=== PATIENT | female | born 1935 | race African-American/Black ===

== ENCOUNTER 2020-05-04 15:39 | Inpatient (IN) | payer OTHER ==
[~2020-05-04] VITALS: Ht 157.5 cm; Wt 60.3 kg
[2020-05-04] MEDS ORDERED: SODIUM CHLORIDE 0.9% 1000ML BAG (SEPSIS BOLUS) IV ONE (16:00)
[2020-05-04] MEDS ORDERED: VANCOMYCIN 1 G PREMIX 200 ML IV ONE (16:00)
[2020-05-04] MEDS ORDERED: PIPERACILLIN/TAZ 3.375G PREMIX 50 ML IV ONE (16:00)
[2020-05-04 16:23] LABS: HEMATOCRIT. 39.5 % (36.0-48.0); HEMOGLOBIN. 12.6 g/dL (12.0-16.0); MEAN CORPUSCULAR HEMOGLOBIN 28.7 pg (28.0-32.0); MEAN CORPUSCULAR VOLUME 89.5 fL (81.0-99.0); PLATELET 126 x1000/uL (130-400); RED BLOOD CELL COUNT 4.41 mill/uL (4.2-5.4); RED CELL DISTRIBUTION WIDTH 15.5 % (11.6-14.6)
[2020-05-04 16:27] LABS: CHLORIDE 121 mEq/L (98-107)
[2020-05-04] MEDS ORDERED: DEXTROSE 50% WATER 50ML SYRINGE IV ONE (16:30)
[2020-05-04 16:44] LABS: BG BASE EXCESS -3.9 mmol/L (-2.0-2.0); BG CARBOXYHEMOGLOBIN 0.7 % (0.5-1.5); BG DEOXYHEMOGLOBIN 0.7 % (0.0-5.0); BG FRACTION INSPIRED OXYGEN 99.9; BG HCO3 ACT 22.2 mmol/L (22.0-26.0); BG METHEMOGLOBIN 0.3 % (0.0-1.5); BG OXYGEN SATURATION 99.3 % (92.0-98.5); BG OXYHEMOGLOBIN 98.3 % (94.0-97.0); BG PCO2 44.9 mmHg (35.0-45.0); BG PH 7.312 (7.350-7.450); BG PO2 300.1 mmHg (75.0-100.0); BG SAMPLE SITE RIGHT RADIAL; BG TOTAL HEMOGLOBIN 10.8 g/dL (12.0-18.0); BG VENT MODE MASK - NRB
[2020-05-04] MEDS ORDERED: SODIUM CHLORIDE 0.9% 1,000 ML IV ONE ×2 (16:45→17:00)
[2020-05-04 16:53] LABS: CREATINE KINASE 3708 IU/L (26-192)
[2020-05-04] MEDS ORDERED: INSULIN REGULAR (DRIP) 100 UNITS in SODIUM CHLORIDE 0.9% 99 ML IV SCH (17:00)
[2020-05-04] MEDS ORDERED: NOREPINEPHRINE 8MG/250ML PMX 250 ML IV ONE (17:00)
[2020-05-04 17:21] LABS: CLARITY URINE TURBID (CLEAR); COLOR URINE YELLOW (YELLOW); KETONES URINE NEGATIVE (NEGATIVE); LEUKOCYTE ESTERASE URINE 2+ (NEGATIVE); NITRITE URINE NEGATIVE (NEGATIVE); OCCULT BLOOD URINE 3+ (NEGATIVE); PROTEIN URINE 2+ (NEGATIVE); SPECIFIC GRAVITY URINE 1.021 (1.005-1.030)
[2020-05-04 17:38] LABS: PLATELET ESTIMATE SLIGHTLY DECREASED
[2020-05-04] MEDS ORDERED: PIPERACILLIN/TAZOBACTAM 3.375 G in DEXT 5% WATER 100 ML IV SCH (18:45)
[2020-05-04] MEDS ORDERED: INSULIN REGULAR (HUMULIN R) 300UNITS/3ML VIAL SUBCUT NR (18:56)
[2020-05-04] MEDS ORDERED: ONDANSETRON HCL 4MG/2ML INJ IV PRN (19:00)
[2020-05-04] MEDS ORDERED: LORAZEPAM 2MG/ML CPJ IV PRN (19:00)
[2020-05-04 19:18] LABS: CREATINE KINASE MB FRACTION 11.1 ng/mL (0.5-3.6)
[2020-05-04] MEDS: NOREPINEPHRINE 8 MG in DEXTROSE 5% WATER 250 ML IV SCH (20:37)
[2020-05-04] MEDS: PIPERACILLIN/TAZOBACTAM 2.25 G in DEXTROSE 5% WATER 50 ML IV SCH (22:43)
[2020-05-05] MEDS ORDERED: DEXTROSE 50% WATER 50ML SYRINGE IV SCH ×2 (03:45)
[2020-05-05] MEDS ORDERED: DEXTROSE 5% WATER 1,000 ML IV ONE (04:30)
[2020-05-05] MEDS: PIPERACILLIN/TAZOBACTAM 2.25 G in DEXTROSE 5% WATER 50 ML IV SCH ×3 (06:00→22:28)
[2020-05-05] MEDS: DEXTROSE 5% WATER 1,000 ML IV SCH ×3 (08:00→22:05)
[2020-05-05] MEDS: NOREPINEPHRINE 8 MG in DEXTROSE 5% WATER 250 ML IV SCH (09:00)
[2020-05-05] MEDS: ASPIRIN 81MG TABLET PO SCH (09:00)
[2020-05-05] MEDS ORDERED: DEXTROSE 50% WATER 50ML SYRINGE IV PRN (13:00)
[2020-05-05] MEDS ORDERED: PHENYLEPHRINE 100 MG in DEXT 5% WATER 240 ML IV PRN (15:00)
[2020-05-05] MEDS ORDERED: LACTULOSE 300 ML in WATER FOR IRRIGATION,STERILE 700 ML IR SCH (15:00)
[2020-05-05 16:40] LABS: HEMATOCRIT. 32.6 % (36.0-48.0); HEMOGLOBIN. 10.6 g/dL (12.0-16.0); MEAN CORPUSCULAR HEMOGLOBIN 28.8 pg (28.0-32.0); MEAN CORPUSCULAR VOLUME 88.4 fL (81.0-99.0); MEAN PLATELET VOLUME 12.6 fl (7.4-10.4); PLATELET 81 x1000/uL (130-400); RED BLOOD CELL COUNT 3.68 mill/uL (4.2-5.4); RED CELL DISTRIBUTION WIDTH 15.4 % (11.6-14.6)
[2020-05-05 16:58] LABS: T4 FREE 1.45 ng/dL (0.76-1.46)
[2020-05-05] MEDS: INSULIN LISPRO 100 UNITS/ML SUBCUT SCH ×3 (17:00→21:54)
[2020-05-05] MEDS: BLOOD SUGAR DIAGNOSTIC STRIP TEST SCH ×2 (17:12→21:47)
[2020-05-05] MEDS ORDERED: NOREPINEPHRINE 8 MG in DEXTROSE 5% WATER 250 ML IV PRN (18:45)
[2020-05-05 19:41] LABS: NUCLEATED RED BLOOD CELLS 1 /100 WBC; PLATELET ESTIMATE DECREASED
[2020-05-05 23:25] LABS: T4 FREE 1.33 ng/dL (0.76-1.46)
[2020-05-05 23:50] LABS: FOLIC ACID (FOLATE) SERUM > 20.00 ng/mL (>5.38); VITAMIN B12 SERUM > 2000.0 pg/mL (211-911)
[2020-05-06] MEDS: CEFEPIME 1,000 MG in DEXTROSE 5% WATER 50 ML IV SCH ×2 (02:02→11:44)
[2020-05-06] MEDS: METRONIDAZOLE 500 MG PREMIX 100 ML IV SCH ×2 (02:43→11:44)
[2020-05-06] MEDS: DEXTROSE 5% WATER 1,000 ML IV SCH ×2 (04:44→11:30)
[2020-05-06 06:03] LABS: PHOSPHORUS 2.4 mg/dL (2.5-4.9)
[2020-05-06 06:06] LABS: T4 FREE 1.36 ng/dL (0.76-1.46)
[2020-05-06] MEDS: BLOOD SUGAR DIAGNOSTIC STRIP TEST SCH ×16 (06:26→23:13)
[2020-05-06] MEDS: INSULIN LISPRO 100 UNITS/ML SUBCUT SCH ×4 (06:32→19:39)
[2020-05-06] MEDS: ASPIRIN 81MG TABLET PO SCH (09:00)
[2020-05-06] MEDS: LACTULOSE 20G/30ML UDC PO SCH (09:00)
[2020-05-06] MEDS ORDERED: MAGNESIUM 2 G PREMIX 50 ML IV NR (09:30)
[2020-05-06] MEDS ORDERED: ALBUMIN HUMAN 25GM/100ML (25%) IV NR (09:30)
[2020-05-06] MEDS ORDERED: INSULIN REGULAR (DRIP) 100 UNITS in SODIUM CHLORIDE 0.9% 99 ML IV SCH (10:00)
[2020-05-06] MEDS ORDERED: POTASSIUM PHOS,M-BASIC-D-BASIC 15 MMOL in DEXT 5% WATER 245 ML IV NR (10:00)
[2020-05-06] MEDS ORDERED: DEXTROSE 50% WATER 50ML SYRINGE IV PRN ×2 (10:00)
[2020-05-06] MEDS ORDERED: POTASSIUM CHLORIDE INJ 40 MEQ in DEXT 5% WATER 250 ML IV NR (10:00)
[2020-05-06 10:02] LABS: HEMATOCRIT. 28.3 % (36.0-48.0); HEMOGLOBIN. 9.4 g/dL (12.0-16.0); MEAN CORPUSCULAR HEMOGLOBIN 29.1 pg (28.0-32.0); MEAN CORPUSCULAR VOLUME 87.4 fL (81.0-99.0); MEAN PLATELET VOLUME 11.6 fl (7.4-10.4); RED BLOOD CELL COUNT 3.24 mill/uL (4.2-5.4); RED CELL DISTRIBUTION WIDTH 15.4 % (11.6-14.6)
[2020-05-06 10:05] LABS: PLATELET 62 x1000/uL (130-400)
[2020-05-06 10:14] LABS: BG BASE EXCESS -4.5 mmol/L (-2.0-2.0); BG CARBOXYHEMOGLOBIN 0.3 % (0.5-1.5); BG DEOXYHEMOGLOBIN 1.9 % (0.0-5.0); BG FRACTION INSPIRED OXYGEN 100; BG HCO3 ACT 18.7 mmol/L (22.0-26.0); BG METHEMOGLOBIN 0.3 % (0.0-1.5); BG OXYGEN SATURATION 98.1 % (92.0-98.5); BG OXYHEMOGLOBIN 97.5 % (94.0-97.0); BG PCO2 27.7 mmHg (35.0-45.0); BG PH 7.448 (7.350-7.450); BG PO2 113.9 mmHg (75.0-100.0); BG SAMPLE SITE RIGHT RADIAL; BG TOTAL HEMOGLOBIN 8.9 g/dL (12.0-18.0); BG VENT MODE MASK - NRB
[2020-05-06] MEDS ORDERED: VANCOMYCIN 750 MG PREMIX 150 ML IV NR (11:00)
[2020-05-06 11:01] LABS: CREATINE KINASE 4182 IU/L (26-192)
[2020-05-06 15:08] LABS: PLATELET ESTIMATE DECREASED
[2020-05-06] MEDS ORDERED: NOREPINEPHRINE 8MG/250ML PMX 250 ML IV PRN (22:00)
[2020-05-06] MEDS: DEXT 5% WATER + KCL 20MEQ/L 1,000 ML IV SCH (23:13)
[2020-05-07] MEDS: BLOOD SUGAR DIAGNOSTIC STRIP TEST SCH ×21 (01:00→23:00)
[2020-05-07] MEDS: METRONIDAZOLE 500 MG PREMIX 100 ML IV SCH ×2 (02:48→12:00)
[2020-05-07] MEDS: CEFEPIME 1,000 MG in DEXTROSE 5% WATER 50 ML IV SCH ×2 (03:12→12:00)
[2020-05-07 08:39] LABS: HEMATOCRIT. 24.4 % (36.0-48.0); HEMOGLOBIN. 8.3 g/dL (12.0-16.0); MEAN CORPUSCULAR HEMOGLOBIN 29.1 pg (28.0-32.0); MEAN CORPUSCULAR VOLUME 85.8 fL (81.0-99.0); MEAN PLATELET VOLUME 12.3 fl (7.4-10.4); RED BLOOD CELL COUNT 2.84 mill/uL (4.2-5.4); RED CELL DISTRIBUTION WIDTH 14.7 % (11.6-14.6)
[2020-05-07 08:45] LABS: PHOSPHORUS 1.9 mg/dL (2.5-4.9)
[2020-05-07] MEDS: NOREPINEPHRINE 8 MG in DEXTROSE 5% WATER 250 ML IV PRN ×3 (09:00→18:35)
[2020-05-07] MEDS: ASPIRIN 81MG TABLET PO SCH (09:00)
[2020-05-07] MEDS: LACTULOSE 20G/30ML UDC PO SCH (09:00)
[2020-05-07 09:40] LABS: PLATELET 47 x1000/uL (130-400)
[2020-05-07] MEDS ORDERED: VANCOMYCIN 750 MG PREMIX 150 ML IV NR (10:30)
[2020-05-07] MEDS ORDERED: POTASSIUM PHOS,M-BASIC-D-BASIC 30 MMOL in DEXT 5% WATER 500 ML IV ONE (10:30)
[2020-05-07] MEDS: DEXT 5% WATER + KCL 20MEQ/L 1,000 ML IV SCH (11:20)
[2020-05-07 12:45] LABS: PLATELET ESTIMATE MARKEDLY DECREASED
[2020-05-07] MEDS ORDERED: POTASSIUM CHLORIDE INJ 40 MEQ in DEXT 5% WATER 250 ML IV ONE (16:30)
[2020-05-08] MEDS: DEXT 5% WATER + KCL 20MEQ/L 1,000 ML IV SCH ×2 (00:40→17:13)
[2020-05-08] MEDS: BLOOD SUGAR DIAGNOSTIC STRIP TEST SCH ×19 (01:00→21:48)
[2020-05-08 06:34] LABS: HEMATOCRIT. 26.2 % (36.0-48.0); HEMOGLOBIN. 8.8 g/dL (12.0-16.0); MEAN CORPUSCULAR HEMOGLOBIN 29.2 pg (28.0-32.0); MEAN CORPUSCULAR VOLUME 87.3 fL (81.0-99.0); MEAN PLATELET VOLUME 10.8 fl (7.4-10.4); RED CELL DISTRIBUTION WIDTH 15.4 % (11.6-14.6)
[2020-05-08 06:46] LABS: PHOSPHORUS 2.7 mg/dL (2.5-4.9)
[2020-05-08] MEDS: LACTULOSE 20G/30ML UDC PO SCH (09:00)
[2020-05-08] MEDS: MIDODRINE HCL 5MG TABLET NG SCH ×3 (09:00→16:14)
[2020-05-08] MEDS: CITRIC ACID/SODIUM CITRATE SOLN 30ML UDC PO SCH ×3 (09:00→17:00)
[2020-05-08 10:21] LABS: PLATELET ESTIMATE MARKEDLY DECREASED
[2020-05-08 10:22] LABS: PLATELET 48 x1000/uL (130-400)
[2020-05-08] MEDS: CEFEPIME 1,000 MG in DEXTROSE 5% WATER 50 ML IV SCH ×2 (12:00)
[2020-05-08] MEDS: METRONIDAZOLE 500 MG PREMIX 100 ML IV SCH ×2 (12:00)
[2020-05-08 12:47] LABS: BG BASE EXCESS -7.4 mmol/L (-2.0-2.0); BG CARBOXYHEMOGLOBIN 0.3 % (0.5-1.5); BG DEOXYHEMOGLOBIN 0.8 % (0.0-5.0); BG FRACTION INSPIRED OXYGEN 100; BG HCO3 ACT 16.2 mmol/L (22.0-26.0); BG METHEMOGLOBIN 0.3 % (0.0-1.5); BG OXYGEN SATURATION 99.2 % (92.0-98.5); BG OXYHEMOGLOBIN 98.6 % (94.0-97.0); BG PCO2 26.3 mmHg (35.0-45.0); BG PH 7.408 (7.350-7.450); BG PO2 216.7 mmHg (75.0-100.0); BG SAMPLE SITE LEFT BRACHIAL; BG TOTAL HEMOGLOBIN 8.5 g/dL (12.0-18.0); BG VENT MODE MASK - NRB
[2020-05-08] MEDS: NOREPINEPHRINE 8 MG in DEXTROSE 5% WATER 250 ML IV PRN (17:00)
[2020-05-08] MEDS: INSULIN LISPRO (HIGH DOSE) 100 UNITS/ML SUBCUT SCH (21:51)
[2020-05-08] MEDS: INSULIN GLARGINE UD 100 UNITS/ML SYR SUBCUT SCH (22:08)
[2020-05-09] MEDS: METRONIDAZOLE 500 MG PREMIX 100 ML IV SCH ×2 (00:41→12:00)
[2020-05-09] MEDS: CEFEPIME 1,000 MG in DEXTROSE 5% WATER 50 ML IV SCH ×2 (00:52→12:00)
[2020-05-09] MEDS: INSULIN LISPRO (HIGH DOSE) 100 UNITS/ML SUBCUT SCH ×4 (03:26→21:22)
[2020-05-09] MEDS: BLOOD SUGAR DIAGNOSTIC STRIP TEST SCH ×4 (03:41→21:22)
[2020-05-09 04:33] LABS: HEMATOCRIT. 25.6 % (36.0-48.0); HEMOGLOBIN. 8.6 g/dL (12.0-16.0); MEAN CORPUSCULAR HEMOGLOBIN 28.4 pg (28.0-32.0); MEAN CORPUSCULAR VOLUME 85.1 fL (81.0-99.0); MEAN PLATELET VOLUME 12.3 fl (7.4-10.4); RED BLOOD CELL COUNT 3.01 mill/uL (4.2-5.4); RED CELL DISTRIBUTION WIDTH 15.2 % (11.6-14.6)
[2020-05-09 04:37] LABS: PHOSPHORUS 1.8 mg/dL (2.5-4.9)
[2020-05-09 04:46] LABS: PLATELET 44 x1000/uL (130-400)
[2020-05-09 08:34] LABS: BG BASE EXCESS -5.1 mmol/L (-2.0-2.0); BG CARBOXYHEMOGLOBIN 0.9 % (0.5-1.5); BG DEOXYHEMOGLOBIN 6.6 % (0.0-5.0); BG HCO3 ACT 17.3 mmol/L (22.0-26.0); BG METHEMOGLOBIN 0.3 % (0.0-1.5); BG OXYGEN SATURATION 93.3 % (92.0-98.5); BG OXYHEMOGLOBIN 92.2 % (94.0-97.0); BG PH 7.493 (7.350-7.450); BG PO2 63.9 mmHg (75.0-100.0); BG SAMPLE SITE RIGHT RADIAL; BG VENT MODE ROOM AIR
[2020-05-09] MEDS ORDERED: POTASSIUM PHOS,M-BASIC-D-BASIC 20 MMOL in DEXT 5% WATER 243.3333 ML IV SCH (09:00)
[2020-05-09] MEDS: LACTULOSE 20G/30ML UDC PO SCH (09:00)
[2020-05-09] MEDS: CITRIC ACID/SODIUM CITRATE SOLN 30ML UDC PO SCH ×3 (09:00→17:00)
[2020-05-09] MEDS: MIDODRINE HCL 5MG TABLET NG SCH ×3 (09:00→17:00)
[2020-05-09] MEDS: INSULIN GLARGINE UD 100 UNITS/ML SYR SUBCUT SCH ×2 (10:00→22:01)
[2020-05-09 13:15] LABS: PLATELET ESTIMATE MARKEDLY DECREASED
[2020-05-09] MEDS: DEXT 5% WATER + KCL 20MEQ/L 1,000 ML IV SCH (13:24)
[2020-05-10] MEDS: CEFEPIME 1,000 MG in DEXTROSE 5% WATER 50 ML IV SCH ×2 (01:00→12:52)
[2020-05-10] MEDS: METRONIDAZOLE 500 MG PREMIX 100 ML IV SCH ×2 (01:10→12:39)
[2020-05-10] MEDS: BLOOD SUGAR DIAGNOSTIC STRIP TEST SCH ×4 (04:02→21:12)
[2020-05-10] MEDS: INSULIN LISPRO (HIGH DOSE) 100 UNITS/ML SUBCUT SCH ×4 (04:05→21:12)
[2020-05-10 05:02] LABS: HEMATOCRIT. 27.9 % (36.0-48.0); HEMOGLOBIN. 9.2 g/dL (12.0-16.0); MEAN CORPUSCULAR HEMOGLOBIN 28.4 pg (28.0-32.0); MEAN CORPUSCULAR VOLUME 86.4 fL (81.0-99.0); MEAN PLATELET VOLUME 11.4 fl (7.4-10.4); PLATELET 52 x1000/uL (130-400); RED BLOOD CELL COUNT 3.23 mill/uL (4.2-5.4); RED CELL DISTRIBUTION WIDTH 15.2 % (11.6-14.6)
[2020-05-10 05:25] LABS: PHOSPHORUS 2.9 mg/dL (2.5-4.9)
[2020-05-10] MEDS: DEXT 5% WATER + KCL 20MEQ/L 1,000 ML IV SCH (08:06)
[2020-05-10] MEDS: CITRIC ACID/SODIUM CITRATE SOLN 30ML UDC PO SCH ×3 (09:00→16:41)
[2020-05-10] MEDS: MIDODRINE HCL 5MG TABLET NG SCH ×3 (09:44→16:40)
[2020-05-10] MEDS: LACTULOSE 20G/30ML UDC PO SCH (09:44)
[2020-05-10] MEDS: INSULIN GLARGINE UD 100 UNITS/ML SYR SUBCUT SCH ×2 (10:11→21:45)
[2020-05-10 11:16] LABS: PLATELET ESTIMATE DECREASED
[2020-05-10] MEDS: MEROPENEM 1,000 MG in SODIUM CHLORIDE 0.9% 100 ML IV SCH (23:00)
[2020-05-11] MEDS: DEXT 5% WATER + KCL 20MEQ/L 1,000 ML IV SCH ×3 (01:07→22:00)
[2020-05-11] MEDS: BLOOD SUGAR DIAGNOSTIC STRIP TEST SCH ×4 (05:45→21:53)
[2020-05-11] MEDS: INSULIN LISPRO (HIGH DOSE) 100 UNITS/ML SUBCUT SCH ×4 (05:50→22:00)
[2020-05-11 06:16] LABS: HEMATOCRIT. 22.7 % (36.0-48.0); HEMOGLOBIN. 7.6 g/dL (12.0-16.0); MEAN CORPUSCULAR HEMOGLOBIN 28.3 pg (28.0-32.0); MEAN CORPUSCULAR VOLUME 84.7 fL (81.0-99.0); MEAN PLATELET VOLUME 11.1 fl (7.4-10.4); PLATELET 73 x1000/uL (130-400); RED BLOOD CELL COUNT 2.69 mill/uL (4.2-5.4); RED CELL DISTRIBUTION WIDTH 14.8 % (11.6-14.6)
[2020-05-11 07:44] LABS: PHOSPHORUS 2.9 mg/dL (2.5-4.9)
[2020-05-11] MEDS: MIDODRINE HCL 5MG TABLET NG SCH ×3 (09:05→16:52)
[2020-05-11] MEDS: CITRIC ACID/SODIUM CITRATE SOLN 30ML UDC PO SCH ×3 (09:05→16:52)
[2020-05-11] MEDS: LACTULOSE 20G/30ML UDC PO SCH (09:05)
[2020-05-11 09:50] LABS: PLATELET ESTIMATE DECREASED
[2020-05-11] MEDS: INSULIN GLARGINE UD 100 UNITS/ML SYR SUBCUT SCH ×2 (09:50→22:36)
[2020-05-11] MEDS: MEROPENEM 1,000 MG in SODIUM CHLORIDE 0.9% 100 ML IV SCH ×2 (10:30→23:30)
[2020-05-11] MEDS ORDERED: INSULIN GLARGINE UD 100 UNITS/ML SYR SUBCUT NR (12:30)
[2020-05-11] MEDS: POLYETHYLENE GLYCOL 3350 (17GM) 1 DOSE PACK PO SCH (12:40)
[2020-05-11] MEDS ORDERED: ALBUMIN HUMAN 25GM/100ML (25%) IV NR (13:45)
[2020-05-11 18:31] LABS: MEAN CORPUSCULAR HEMOGLOBIN 28.1 pg (28.0-32.0); MEAN CORPUSCULAR VOLUME 84.8 fL (81.0-99.0); PLATELET 71 x1000/uL (130-400); RED BLOOD CELL COUNT 2.41 mill/uL (4.2-5.4); RED CELL DISTRIBUTION WIDTH 14.8 % (11.6-14.6)
[2020-05-11 18:34] LABS: HEMATOCRIT 20.4 % (36.0-48.0); HEMOGLOBIN 6.8 g/dL (12.0-16.0)
[2020-05-12] VITALS (34 sets, daily range): BP systolic 110–153; BP diastolic 44–92
[2020-05-12] MEDS: BLOOD SUGAR DIAGNOSTIC STRIP TEST SCH ×4 (03:42→21:07)
[2020-05-12] MEDS: INSULIN LISPRO (HIGH DOSE) 100 UNITS/ML SUBCUT SCH ×4 (04:35→21:14)
[2020-05-12 06:22] LABS: PHOSPHORUS 1.8 mg/dL (2.5-4.9)
[2020-05-12] MEDS: DEXT 5% WATER + KCL 20MEQ/L 1,000 ML IV SCH ×2 (08:04→18:27)
[2020-05-12] MEDS ORDERED: POTASSIUM PHOS,M-BASIC-D-BASIC 20 MMOL in DEXT 5% WATER 250 ML IV SCH (09:00)
[2020-05-12] MEDS: LACTULOSE 20G/30ML UDC PO SCH (09:22)
[2020-05-12] MEDS: MIDODRINE HCL 5MG TABLET NG SCH ×3 (09:22→18:23)
[2020-05-12] MEDS: POLYETHYLENE GLYCOL 3350 (17GM) 1 DOSE PACK PO SCH (10:06)
[2020-05-12] MEDS: CITRIC ACID/SODIUM CITRATE SOLN 30ML UDC PO SCH ×3 (10:06→18:22)
[2020-05-12] MEDS: INSULIN GLARGINE UD 100 UNITS/ML SYR SUBCUT SCH ×2 (10:07→21:31)
[2020-05-12 10:09] LABS: MEAN CORPUSCULAR HEMOGLOBIN 28.8 pg (28.0-32.0); MEAN CORPUSCULAR VOLUME 86.3 fL (81.0-99.0); MEAN PLATELET VOLUME 11.4 fl (7.4-10.4); PLATELET 90 x1000/uL (130-400); RED CELL DISTRIBUTION WIDTH 14.7 % (11.6-14.6)
[2020-05-12 10:20] LABS: HEMATOCRIT. 20.7 % (36.0-48.0); HEMOGLOBIN. 6.9 g/dL (12.0-16.0)
[2020-05-12] MEDS: MEROPENEM 1,000 MG in SODIUM CHLORIDE 0.9% 100 ML IV SCH ×2 (11:06→23:00)
[2020-05-12 13:07] LABS: NUCLEATED RED BLOOD CELLS 1 /100 WBC; PLATELET ESTIMATE SLIGHTLY DECREASED
[2020-05-12 15:44] LABS: TOTAL IRON BINDING CAPACITY 333 ug/dL (250-450)
[2020-05-12] MEDS ORDERED: HYDR25TA PO (18:51)
[2020-05-12] MEDS ORDERED: LISI2.5T47 PO (18:51)
[2020-05-12] MEDS ORDERED: ATOR10TA69 PO (18:51)
[2020-05-12] MEDS ORDERED: ASPI-864 PO (18:51)
[2020-05-12] MEDS ORDERED: AMLO5TAB88 PO (18:51)
[2020-05-12] MEDS: PANTOPRAZOLE SODIUM 40 MG/VIAL IV SCH (21:14)
[2020-05-12] MEDS ORDERED: PNEUMOCOCCAL 23-VAL P-SAC VAC 0.5 ML IM ONE (22:00)
[2020-05-12 23:30] LABS: HEMATOCRIT 30.8 % (36.0-48.0); HEMOGLOBIN 10.3 g/dL (12.0-16.0)
[2020-05-13] VITALS (42 sets, daily range): BP systolic 85–167; BP diastolic 32–104
[2020-05-13] MEDS: DEXT 5% WATER + KCL 20MEQ/L 1,000 ML IV SCH ×3 (01:28→23:04)
[2020-05-13] MEDS: INSULIN LISPRO (HIGH DOSE) 100 UNITS/ML SUBCUT SCH ×4 (03:30→21:08)
[2020-05-13] MEDS: BLOOD SUGAR DIAGNOSTIC STRIP TEST SCH ×4 (03:30→21:08)
[2020-05-13] MEDS: MIDODRINE HCL 5MG TABLET NG SCH ×4 (09:00→18:51)
[2020-05-13] MEDS: LACTULOSE 20G/30ML UDC PO SCH ×2 (09:00→10:31)
[2020-05-13] MEDS: CITRIC ACID/SODIUM CITRATE SOLN 30ML UDC PO SCH ×4 (09:00→18:50)
[2020-05-13] MEDS: POLYETHYLENE GLYCOL 3350 (17GM) 1 DOSE PACK PO SCH ×2 (09:00→10:30)
[2020-05-13] MEDS: MEROPENEM 1,000 MG in SODIUM CHLORIDE 0.9% 100 ML IV SCH ×2 (10:30→23:04)
[2020-05-13] MEDS: PANTOPRAZOLE SODIUM 40 MG/VIAL IV SCH ×2 (10:30→21:12)
[2020-05-13 10:32] LABS: HEMATOCRIT. 30.2 % (36.0-48.0); HEMOGLOBIN. 10.3 g/dL (12.0-16.0); MEAN CORPUSCULAR HEMOGLOBIN 29.5 pg (28.0-32.0); MEAN CORPUSCULAR VOLUME 86.4 fL (81.0-99.0); MEAN PLATELET VOLUME 11.3 fl (7.4-10.4); PLATELET 114 x1000/uL (130-400); RED BLOOD CELL COUNT 3.49 mill/uL (4.2-5.4); RED CELL DISTRIBUTION WIDTH 15.4 % (11.6-14.6)
[2020-05-13] MEDS: INSULIN GLARGINE UD 100 UNITS/ML SYR SUBCUT SCH ×2 (10:32→21:08)
[2020-05-13 10:42] LABS: CHLORIDE 108 mEq/L (98-107); INR 1.1; PARTIAL THROMBOPLASTIN TIME 22.7 sec (23.4-31.0); PROTHROMBIN TIME 11.1 sec (9.6-11.0)
[2020-05-13 10:48] LABS: PHOSPHORUS 2.3 mg/dL (2.5-4.9)
[2020-05-13] MEDS ORDERED: MIDAZOLAM HCL 5 MG/5 ML VIAL ONE (11:41)
[2020-05-13] MEDS ORDERED: FENTANYL CITRATE/PF 50MCG/ML 2ML VIAL ONE (11:41)
[2020-05-13] MEDS ORDERED: MIDAZOLAM HCL 2 MG/2 ML VIAL IV PRN (11:41)
[2020-05-13 13:35] LABS: NUCLEATED RED BLOOD CELLS 1 /100 WBC; PLATELET ESTIMATE SLIGHTLY DECREASED
[2020-05-14] VITALS (81 sets, daily range): BP systolic 100–165; BP diastolic 34–116
[2020-05-14] MEDS: BLOOD SUGAR DIAGNOSTIC STRIP TEST SCH ×2 (02:42→20:46)
[2020-05-14] MEDS: INSULIN LISPRO (HIGH DOSE) 100 UNITS/ML SUBCUT SCH ×4 (02:43→21:30)
[2020-05-14] MEDS: DEXT 5% WATER + KCL 20MEQ/L 1,000 ML IV SCH ×4 (06:08→23:01)
[2020-05-14 06:29] LABS: BASOPHILS % 0.1 % (0.0-2.0); HEMATOCRIT. 30.5 % (36.0-48.0); HEMOGLOBIN. 10.4 g/dL (12.0-16.0); LYMPHOCYTES % 10.1 % (20.0-50.0); MEAN CORPUSCULAR HEMOGLOBIN 30.1 pg (28.0-32.0); MEAN CORPUSCULAR VOLUME 88.2 fL (81.0-99.0); MEAN PLATELET VOLUME 10.9 fl (7.4-10.4); NEUTROPHILS % 83.8 % (40.0-76.0); PLATELET 98 x1000/uL (130-400); RED BLOOD CELL COUNT 3.46 mill/uL (4.2-5.4); RED CELL DISTRIBUTION WIDTH 15.3 % (11.6-14.6)
[2020-05-14 07:23] LABS: CHLORIDE 107 mEq/L (98-107)
[2020-05-14] MEDS: MIDODRINE HCL 5MG TABLET NG SCH ×3 (09:00→17:00)
[2020-05-14] MEDS: PANTOPRAZOLE SODIUM 40 MG/VIAL IV SCH ×2 (09:53→20:47)
[2020-05-14] MEDS: LACTULOSE 20G/30ML UDC PO SCH (09:53)
[2020-05-14] MEDS: POLYETHYLENE GLYCOL 3350 (17GM) 1 DOSE PACK PO SCH (09:55)
[2020-05-14] MEDS: CITRIC ACID/SODIUM CITRATE SOLN 30ML UDC PO SCH (09:57)
[2020-05-14] MEDS: INSULIN GLARGINE UD 100 UNITS/ML SYR SUBCUT SCH ×2 (10:33→20:47)
[2020-05-14] MEDS: MEROPENEM 1,000 MG in SODIUM CHLORIDE 0.9% 100 ML IV SCH ×2 (11:00→23:00)
[2020-05-14 18:53] LABS: PHOSPHORUS 2.7 mg/dL (2.5-4.9)
[2020-05-15] VITALS (8 sets, daily range): BP systolic 101–139; BP diastolic 43–87
[2020-05-15] MEDS: INSULIN LISPRO (HIGH DOSE) 100 UNITS/ML SUBCUT SCH ×4 (03:30→21:30)
[2020-05-15] MEDS: BLOOD SUGAR DIAGNOSTIC STRIP TEST SCH ×4 (04:01→21:02)
[2020-05-15] MEDS: INSULIN GLARGINE UD 100 UNITS/ML SYR SUBCUT SCH (10:00)
[2020-05-15] MEDS: PANTOPRAZOLE SODIUM 40 MG/VIAL IV SCH ×2 (10:07→21:03)
[2020-05-15] MEDS: LACTULOSE 20G/30ML UDC PO SCH (10:07)
[2020-05-15] MEDS: POLYETHYLENE GLYCOL 3350 (17GM) 1 DOSE PACK PO SCH (10:08)
[2020-05-15] MEDS: MIDODRINE HCL 5MG TABLET NG SCH ×3 (10:08→18:08)
[2020-05-15 12:59] LABS: HEMATOCRIT. 26.9 % (36.0-48.0); HEMOGLOBIN. 9.1 g/dL (12.0-16.0); MEAN CORPUSCULAR VOLUME 88.6 fL (81.0-99.0); RED BLOOD CELL COUNT 3.04 mill/uL (4.2-5.4); RED CELL DISTRIBUTION WIDTH 15.9 % (11.6-14.6)
[2020-05-15 13:11] LABS: CHLORIDE 105 mEq/L (98-107)
[2020-05-15 13:25] LABS: PHOSPHORUS 2.5 mg/dL (2.5-4.9)
[2020-05-15 13:33] LABS: PLATELET 131 x1000/uL (130-400)
[2020-05-15 13:38] LABS: NUCLEATED RED BLOOD CELLS 2 /100 WBC; PLATELET ESTIMATE NORMAL
[2020-05-15] MEDS: MEROPENEM 1,000 MG in SODIUM CHLORIDE 0.9% 100 ML IV SCH ×2 (14:09→23:39)
[2020-05-16] VITALS (7 sets, daily range): BP systolic 91–112; BP diastolic 40–63
[2020-05-16] MEDS: INSULIN LISPRO (HIGH DOSE) 100 UNITS/ML SUBCUT SCH ×4 (04:18→21:05)
[2020-05-16] MEDS: BLOOD SUGAR DIAGNOSTIC STRIP TEST SCH ×4 (04:18→21:04)
[2020-05-16 07:01] LABS: BASOPHILS % 0.6 % (0.0-2.0); EOSINOPHILS % 1.5 % (0.0-5.0); LYMPHOCYTES % 9.8 % (20.0-50.0); MEAN CORPUSCULAR HEMOGLOBIN 30.5 pg (28.0-32.0); MEAN CORPUSCULAR VOLUME 88.2 fL (81.0-99.0); MEAN PLATELET VOLUME 10.4 fl (7.4-10.4); MONOCYTES % 3.8 % (2.0-8.0); NEUTROPHILS % 84.3 % (40.0-76.0); PLATELET 179 x1000/uL (130-400); RED BLOOD CELL COUNT 2.94 mill/uL (4.2-5.4); RED CELL DISTRIBUTION WIDTH 15.9 % (11.6-14.6)
[2020-05-16 07:15] LABS: CHLORIDE 107 mEq/L (98-107)
[2020-05-16 07:21] LABS: PHOSPHORUS 3.1 mg/dL (2.5-4.9)
[2020-05-16] MEDS: PANTOPRAZOLE SODIUM 40 MG/VIAL IV SCH ×2 (08:50→20:41)
[2020-05-16] MEDS: POLYETHYLENE GLYCOL 3350 (17GM) 1 DOSE PACK PO SCH (08:50)
[2020-05-16] MEDS: MIDODRINE HCL 5MG TABLET NG SCH ×3 (08:53→17:00)
[2020-05-17] VITALS: BP 93/62
[2020-05-17] MEDS: ACETAMINOPHEN 650MG SUPP PR PRN (01:10)
[2020-05-17] MEDS: INSULIN LISPRO (HIGH DOSE) 100 UNITS/ML SUBCUT SCH ×4 (03:30→21:02)
[2020-05-17] MEDS: BLOOD SUGAR DIAGNOSTIC STRIP TEST SCH ×4 (03:30→20:57)
[2020-05-17 04:00] VITALS: BP 96/54
[2020-05-17 07:20] LABS: BASOPHILS % 0.4 % (0.0-2.0); EOSINOPHILS % 0.6 % (0.0-5.0); HEMATOCRIT. 25.9 % (36.0-48.0); HEMOGLOBIN. 8.8 g/dL (12.0-16.0); LYMPHOCYTES % 7.8 % (20.0-50.0); MEAN CORPUSCULAR HEMOGLOBIN 30.2 pg (28.0-32.0); MEAN CORPUSCULAR VOLUME 89.4 fL (81.0-99.0); MEAN PLATELET VOLUME 10.1 fl (7.4-10.4); MONOCYTES % 4.8 % (2.0-8.0); NEUTROPHILS % 86.4 % (40.0-76.0); PLATELET 213 x1000/uL (130-400); RED CELL DISTRIBUTION WIDTH 16.5 % (11.6-14.6)
[2020-05-17 08:00] VITALS: BP 96/47
[2020-05-17] MEDS: MIDODRINE HCL 5MG TABLET NG SCH ×3 (09:00→16:50)
[2020-05-17] MEDS: ASPIRIN 81MG TABLET PO SCH (09:30)
[2020-05-17] MEDS: POLYETHYLENE GLYCOL 3350 (17GM) 1 DOSE PACK PO SCH (09:30)
[2020-05-17] MEDS: PANTOPRAZOLE SODIUM 40 MG/VIAL IV SCH ×2 (09:30→20:57)
[2020-05-17 12:00] VITALS: BP 107/41
[2020-05-17 16:00] VITALS: BP 99/44
[2020-05-17 20:00] VITALS: BP 101/42
[2020-05-18] VITALS: BP 113/91
[2020-05-18] MEDS: ACETAMINOPHEN 650MG SUPP PR PRN (00:18)
[2020-05-18] MEDS: BLOOD SUGAR DIAGNOSTIC STRIP TEST SCH ×4 (03:45→20:46)
[2020-05-18] MEDS: INSULIN LISPRO (HIGH DOSE) 100 UNITS/ML SUBCUT SCH ×4 (03:53→21:06)
[2020-05-18 04:00] VITALS: BP 94/43
[2020-05-18 06:29] LABS: HEMOGLOBIN. 8.7 g/dL (12.0-16.0); MEAN CORPUSCULAR HEMOGLOBIN 29.8 pg (28.0-32.0); MEAN PLATELET VOLUME 9.8 fl (7.4-10.4); PLATELET 267 x1000/uL (130-400); RED BLOOD CELL COUNT 2.92 mill/uL (4.2-5.4); RED CELL DISTRIBUTION WIDTH 16.7 % (11.6-14.6)
[2020-05-18 07:41] LABS: PHOSPHORUS 2.3 mg/dL (2.5-4.9)
[2020-05-18 08:00] VITALS: BP 113/71
[2020-05-18] MEDS: ASPIRIN 81MG TABLET PO SCH (09:34)
[2020-05-18] MEDS: PANTOPRAZOLE SODIUM 40 MG/VIAL IV SCH ×2 (09:35→20:46)
[2020-05-18] MEDS: POLYETHYLENE GLYCOL 3350 (17GM) 1 DOSE PACK PO SCH (09:36)
[2020-05-18] MEDS: MIDODRINE HCL 5MG TABLET NG SCH ×3 (09:36→16:32)
[2020-05-18] MEDS ORDERED: SODIUM PHOS,M-BASIC-D-BASIC 15 MM in DEXT 5% WATER 245 ML IV SCH (11:00)
[2020-05-18 12:00] VITALS: BP 137/67
[2020-05-18 16:00] VITALS: BP 101/44
[2020-05-18 16:46] LABS: PLATELET ESTIMATE NORMAL
[2020-05-18 20:00] VITALS: BP 98/43
[2020-05-19] VITALS (8 sets, daily range): BP systolic 97–159; BP diastolic 43–97
[2020-05-19] MEDS: ACETAMINOPHEN 650MG SUPP PR PRN ×3 (02:10→20:21)
[2020-05-19] MEDS: INSULIN LISPRO (HIGH DOSE) 100 UNITS/ML SUBCUT SCH ×4 (03:42→22:25)
[2020-05-19] MEDS: BLOOD SUGAR DIAGNOSTIC STRIP TEST SCH ×4 (03:42→22:03)
[2020-05-19 06:25] LABS: HEMATOCRIT. 27.7 % (36.0-48.0); HEMOGLOBIN. 9.1 g/dL (12.0-16.0); MEAN CORPUSCULAR HEMOGLOBIN 29.4 pg (28.0-32.0); MEAN CORPUSCULAR VOLUME 89.5 fL (81.0-99.0); MEAN PLATELET VOLUME 10.4 fl (7.4-10.4); PLATELET 322 x1000/uL (130-400); RED BLOOD CELL COUNT 3.09 mill/uL (4.2-5.4); RED CELL DISTRIBUTION WIDTH 17.1 % (11.6-14.6)
[2020-05-19 06:56] LABS: CHLORIDE 104 mEq/L (98-107)
[2020-05-19 07:04] LABS: PHOSPHORUS 2.9 mg/dL (2.5-4.9)
[2020-05-19] MEDS: POLYETHYLENE GLYCOL 3350 (17GM) 1 DOSE PACK PO SCH (09:13)
[2020-05-19] MEDS: MIDODRINE HCL 5MG TABLET NG SCH ×3 (09:14→18:03)
[2020-05-19] MEDS: PANTOPRAZOLE SODIUM 40 MG/VIAL IV SCH ×2 (09:14→20:21)
[2020-05-19] MEDS: ASPIRIN 81MG TABLET PO SCH (09:14)
[2020-05-19] MEDS ORDERED: LIDOCAINE HCL/EPINEPHRINE 1%-EPI 1:100,000 50 ML VIAL INFIL SCH (13:30)
[2020-05-19] MEDS ORDERED: LIDOCAINE HCL/EPINEPHRINE 1%-EPI 1:100,000 20 ML VIAL INFIL SCH (14:00)
[2020-05-19 14:28] LABS: PLATELET ESTIMATE NORMAL
[2020-05-19] MEDS: MICAFUNGIN 100 MG in SODIUM CHLORIDE 0.9% 100 ML IV SCH (22:25)
[2020-05-19] MEDS: MEROPENEM 500 MG in SODIUM CHLORIDE 0.9% 50 ML IV SCH (23:52)
[2020-05-20] VITALS: BP 134/75
[2020-05-20] MEDS: BLOOD SUGAR DIAGNOSTIC STRIP TEST SCH ×4 (03:30→21:09)
[2020-05-20 04:00] VITALS: BP 130/78
[2020-05-20] MEDS: INSULIN LISPRO (HIGH DOSE) 100 UNITS/ML SUBCUT SCH ×4 (05:11→21:17)
[2020-05-20] MEDS: MEROPENEM 500 MG in SODIUM CHLORIDE 0.9% 50 ML IV SCH ×3 (05:58→22:16)
[2020-05-20 06:00] LABS: CHLORIDE 103 mEq/L (98-107)
[2020-05-20 06:06] LABS: PHOSPHORUS 2.5 mg/dL (2.5-4.9)
[2020-05-20 06:32] LABS: BASOPHILS % 0.7 % (0.0-2.0); EOSINOPHILS % 0.3 % (0.0-5.0); HEMATOCRIT. 28.4 % (36.0-48.0); HEMOGLOBIN. 9.6 g/dL (12.0-16.0); LYMPHOCYTES % 18.6 % (20.0-50.0); MEAN CORPUSCULAR HEMOGLOBIN 30.3 pg (28.0-32.0); MEAN CORPUSCULAR VOLUME 90.1 fL (81.0-99.0); MEAN PLATELET VOLUME 10.5 fl (7.4-10.4); MONOCYTES % 6.4 % (2.0-8.0); PLATELET 395 x1000/uL (130-400); RED BLOOD CELL COUNT 3.16 mill/uL (4.2-5.4); RED CELL DISTRIBUTION WIDTH 17.3 % (11.6-14.6)
[2020-05-20 08:00] VITALS: BP 111/48
[2020-05-20] MEDS: POLYETHYLENE GLYCOL 3350 (17GM) 1 DOSE PACK PO SCH (09:00)
[2020-05-20] MEDS ORDERED: FUROSEMIDE 20MG/2ML VIAL IVP SCH (09:15)
[2020-05-20] MEDS: PANTOPRAZOLE SODIUM 40 MG/VIAL IV SCH ×2 (09:26→21:10)
[2020-05-20] MEDS: ASPIRIN 81MG TABLET PO SCH (09:26)
[2020-05-20] MEDS: MIDODRINE HCL 5MG TABLET NG SCH ×3 (09:27→18:28)
[2020-05-20] MEDS: INSULIN GLARGINE UD 100 UNITS/ML SYR SUBCUT SCH (10:21)
[2020-05-20 12:00] VITALS: BP 145/76
[2020-05-20] MEDS ORDERED: IPRATROPIUM/ALBUTEROL 0.5-3(2.5)MG/3ML NEB HHN PRN (15:15)
[2020-05-20 16:00] VITALS: BP 110/49
[2020-05-20] MEDS: ACETAMINOPHEN 650MG SUPP PR PRN (18:38)
[2020-05-20 20:00] VITALS: BP 121/64
[2020-05-20] MEDS ORDERED: SODIUM POLYSTYRENE SULFONATE 15 G/60 ML BOT PO NR (20:00)
[2020-05-20] MEDS: MICAFUNGIN 100 MG in SODIUM CHLORIDE 0.9% 100 ML IV SCH (21:09)
[2020-05-21] VITALS: BP 118/62
[2020-05-21] MEDS: BLOOD SUGAR DIAGNOSTIC STRIP TEST SCH ×4 (03:54→21:46)
[2020-05-21] MEDS: INSULIN LISPRO (HIGH DOSE) 100 UNITS/ML SUBCUT SCH ×6 (03:58→21:52)
[2020-05-21 04:00] VITALS: BP 118/59
[2020-05-21 07:17] LABS: BASOPHILS % 0.3 % (0.0-2.0); EOSINOPHILS % 0.4 % (0.0-5.0); HEMATOCRIT. 27.7 % (36.0-48.0); HEMOGLOBIN. 9.1 g/dL (12.0-16.0); LYMPHOCYTES % 16.7 % (20.0-50.0); MEAN CORPUSCULAR HEMOGLOBIN 29.4 pg (28.0-32.0); MEAN CORPUSCULAR VOLUME 89.5 fL (81.0-99.0); MEAN PLATELET VOLUME 10.2 fl (7.4-10.4); MONOCYTES % 6.5 % (2.0-8.0); NEUTROPHILS % 76.1 % (40.0-76.0); PLATELET 498 x1000/uL (130-400); RED BLOOD CELL COUNT 3.09 mill/uL (4.2-5.4); RED CELL DISTRIBUTION WIDTH 17.3 % (11.6-14.6)
[2020-05-21 08:00] VITALS: BP_SYST 111; BP_SYST 146; BP_DIAS 62
[2020-05-21 08:08] LABS: PHOSPHORUS 2.7 mg/dL (2.5-4.9)
[2020-05-21] MEDS: SODIUM HYPOCHLORITE 0.125% 473ML SOLUTION TOP SCH (09:00)
[2020-05-21] MEDS ORDERED: FUROSEMIDE 20MG/2ML VIAL IVP SCH (09:30)
[2020-05-21] MEDS: MIDODRINE HCL 5MG TABLET NG SCH ×3 (10:06→16:11)
[2020-05-21] MEDS: PANTOPRAZOLE SODIUM 40 MG/VIAL IV SCH ×2 (10:06→20:51)
[2020-05-21] MEDS: POLYETHYLENE GLYCOL 3350 (17GM) 1 DOSE PACK PO SCH (10:06)
[2020-05-21] MEDS: INSULIN GLARGINE UD 100 UNITS/ML SYR SUBCUT SCH (10:24)
[2020-05-21 12:00] VITALS: BP 146/62
[2020-05-21] MEDS ORDERED: HYDR25TA PO (13:21)
[2020-05-21] MEDS ORDERED: MIDO5TAB4 NG ×2 (13:22)
[2020-05-21 16:00] VITALS: BP 143/78
[2020-05-21 20:00] VITALS: BP 125/64
[2020-05-21] MEDS: MICAFUNGIN 100 MG in SODIUM CHLORIDE 0.9% 100 ML IV SCH (21:01)
[2020-05-22] VITALS: BP 135/72
[2020-05-22] MEDS: INSULIN LISPRO (HIGH DOSE) 100 UNITS/ML SUBCUT SCH ×4 (03:30→21:30)
[2020-05-22] MEDS: BLOOD SUGAR DIAGNOSTIC STRIP TEST SCH ×4 (03:30→21:30)
[2020-05-22 04:00] VITALS: BP 139/77
[2020-05-22 07:35] LABS: HEMATOCRIT. 30.1 % (36.0-48.0); HEMOGLOBIN. 9.9 g/dL (12.0-16.0); MEAN CORPUSCULAR HEMOGLOBIN 29.6 pg (28.0-32.0); MEAN PLATELET VOLUME 9.9 fl (7.4-10.4); PLATELET 505 x1000/uL (130-400); RED BLOOD CELL COUNT 3.35 mill/uL (4.2-5.4); RED CELL DISTRIBUTION WIDTH 17.2 % (11.6-14.6)
[2020-05-22 08:00] VITALS: BP 133/70
[2020-05-22 08:00] LABS: PHOSPHORUS 4.1 mg/dL (2.5-4.9)
[2020-05-22] MEDS ORDERED: FUROSEMIDE 20MG/2ML VIAL IVP NR (08:30)
[2020-05-22] MEDS: FUROSEMIDE 20MG/2ML VIAL IVP SCH (10:30)
[2020-05-22] MEDS: INSULIN GLARGINE UD 100 UNITS/ML SYR SUBCUT SCH (10:49)
[2020-05-22] MEDS: PANTOPRAZOLE SODIUM 40 MG/VIAL IV SCH ×2 (10:50→21:00)
[2020-05-22] MEDS: MIDODRINE HCL 5MG TABLET NG SCH ×3 (10:50→18:19)
[2020-05-22] MEDS: POLYETHYLENE GLYCOL 3350 (17GM) 1 DOSE PACK PO SCH (10:51)
[2020-05-22] MEDS: SODIUM HYPOCHLORITE 0.125% 473ML SOLUTION TOP SCH (10:51)
[2020-05-22 12:00] VITALS: BP 125/64
[2020-05-22 13:48] VITALS: BP 125/64
[2020-05-22] MEDS: MEROPENEM 500 MG in SODIUM CHLORIDE 0.9% 50 ML IV SCH ×2 (14:35→22:00)
[2020-05-22 21:48] VITALS: BP 109/56
[2020-05-22] MEDS: MICAFUNGIN 100 MG in SODIUM CHLORIDE 0.9% 100 ML IV SCH (22:00)
[2020-05-22 23:27] LABS: NUCLEATED RED BLOOD CELLS 1 /100 WBC; PLATELET ESTIMATE INCREASED
[2020-05-23 01:28] VITALS: BP 108/54
[2020-05-23] MEDS: BLOOD SUGAR DIAGNOSTIC STRIP TEST SCH ×4 (03:15→21:00)
[2020-05-23] MEDS: INSULIN LISPRO (HIGH DOSE) 100 UNITS/ML SUBCUT SCH ×4 (03:35→21:30)
[2020-05-23] MEDS: ACETAMINOPHEN 650MG SUPP PR PRN (04:12)
[2020-05-23 05:34] VITALS: BP 127/70
[2020-05-23] MEDS: MEROPENEM 500 MG in SODIUM CHLORIDE 0.9% 50 ML IV SCH ×3 (06:22→23:28)
[2020-05-23 08:00] VITALS: BP 106/54
[2020-05-23 08:13] LABS: PHOSPHORUS 2.8 mg/dL (2.5-4.9)
[2020-05-23] MEDS: POLYETHYLENE GLYCOL 3350 (17GM) 1 DOSE PACK PO SCH (09:00)
[2020-05-23] MEDS: SODIUM HYPOCHLORITE 0.125% 473ML SOLUTION TOP SCH (09:15)
[2020-05-23] MEDS: PANTOPRAZOLE SODIUM 40 MG/VIAL IV SCH ×2 (09:15→23:27)
[2020-05-23] MEDS: MIDODRINE HCL 5MG TABLET NG SCH ×3 (09:17→17:41)
[2020-05-23] MEDS: FUROSEMIDE 20MG/2ML VIAL IVP SCH (09:18)
[2020-05-23] MEDS: INSULIN GLARGINE UD 100 UNITS/ML SYR SUBCUT SCH (09:45)
[2020-05-23 12:00] VITALS: BP 114/56
[2020-05-23 13:12] LABS: BASOPHILS % 0.3 % (0.0-2.0); HEMATOCRIT. 29.7 % (36.0-48.0); HEMOGLOBIN. 9.6 g/dL (12.0-16.0); LYMPHOCYTES % 7.1 % (20.0-50.0); MEAN CORPUSCULAR HEMOGLOBIN 29.5 pg (28.0-32.0); MEAN CORPUSCULAR VOLUME 91.4 fL (81.0-99.0); NEUTROPHILS % 84.6 % (40.0-76.0); RED BLOOD CELL COUNT 3.25 mill/uL (4.2-5.4); RED CELL DISTRIBUTION WIDTH 17.9 % (11.6-14.6)
[2020-05-23 13:54] LABS: PLATELET 448 x1000/uL (130-400)
[2020-05-23 16:00] VITALS: BP 120/62
[2020-05-23 20:00] VITALS: BP 117/72
[2020-05-23] MEDS: MICAFUNGIN 100 MG in SODIUM CHLORIDE 0.9% 100 ML IV SCH (23:28)
[2020-05-24] VITALS: BP 116/57
[2020-05-24] MEDS: INSULIN LISPRO (HIGH DOSE) 100 UNITS/ML SUBCUT SCH ×3 (03:30→22:50)
[2020-05-24] MEDS: BLOOD SUGAR DIAGNOSTIC STRIP TEST SCH ×4 (03:30→21:30)
[2020-05-24 04:00] VITALS: BP 123/51
[2020-05-24] MEDS: MEROPENEM 500 MG in SODIUM CHLORIDE 0.9% 50 ML IV SCH ×3 (05:34→22:47)
[2020-05-24 07:07] LABS: BASOPHILS % 0.1 % (0.0-2.0); EOSINOPHILS % 0.4 % (0.0-5.0); HEMATOCRIT. 30.6 % (36.0-48.0); HEMOGLOBIN. 9.7 g/dL (12.0-16.0); LYMPHOCYTES % 7.2 % (20.0-50.0); MEAN CORPUSCULAR HEMOGLOBIN 28.8 pg (28.0-32.0); MEAN CORPUSCULAR VOLUME 90.2 fL (81.0-99.0); MEAN PLATELET VOLUME 9.5 fl (7.4-10.4); MONOCYTES % 4.3 % (2.0-8.0); PLATELET 504 x1000/uL (130-400); RED BLOOD CELL COUNT 3.39 mill/uL (4.2-5.4)
[2020-05-24 07:15] LABS: CHLORIDE 104 mEq/L (98-107)
[2020-05-24 07:35] LABS: PHOSPHORUS 2.4 mg/dL (2.5-4.9)
[2020-05-24 08:00] VITALS: BP 124/56
[2020-05-24] MEDS: FUROSEMIDE 20MG/2ML VIAL IVP SCH (09:00)
[2020-05-24] MEDS: SODIUM HYPOCHLORITE 0.125% 473ML SOLUTION TOP SCH (09:00)
[2020-05-24] MEDS: POLYETHYLENE GLYCOL 3350 (17GM) 1 DOSE PACK PO SCH (09:00)
[2020-05-24] MEDS: MIDODRINE HCL 5MG TABLET NG SCH ×3 (09:00→18:23)
[2020-05-24] MEDS: PANTOPRAZOLE SODIUM 40 MG/VIAL IV SCH ×2 (09:00→22:47)
[2020-05-24] MEDS ORDERED: POTASSIUM PHOS,M-BASIC-D-BASIC 15 MMOL in DEXT 5% WATER 245 ML IV SCH (10:00)
[2020-05-24] MEDS: INSULIN GLARGINE UD 100 UNITS/ML SYR SUBCUT SCH (10:00)
[2020-05-24 12:00] VITALS: BP 130/58
[2020-05-24] MEDS: ACETAMINOPHEN 650MG SUPP PR PRN (18:23)
[2020-05-24 20:00] VITALS: BP 117/42
[2020-05-25] VITALS: BP 109/35
[2020-05-25] MEDS: MICAFUNGIN 100 MG in SODIUM CHLORIDE 0.9% 100 ML IV SCH ×2 (02:15→23:51)
[2020-05-25 04:00] VITALS: BP 123/59
[2020-05-25] MEDS: INSULIN LISPRO (HIGH DOSE) 100 UNITS/ML SUBCUT SCH ×4 (04:24→21:30)
[2020-05-25 07:17] LABS: CHLORIDE 106 mEq/L (98-107)
[2020-05-25 07:25] LABS: PHOSPHORUS 2.8 mg/dL (2.5-4.9)
[2020-05-25 07:26] LABS: BASOPHILS % 0.3 % (0.0-2.0); EOSINOPHILS % 1.3 % (0.0-5.0); HEMATOCRIT. 27.7 % (36.0-48.0); HEMOGLOBIN. 9.1 g/dL (12.0-16.0); LYMPHOCYTES % 8.1 % (20.0-50.0); MEAN CORPUSCULAR HEMOGLOBIN 29.4 pg (28.0-32.0); MEAN CORPUSCULAR VOLUME 89.1 fL (81.0-99.0); MEAN PLATELET VOLUME 9.1 fl (7.4-10.4); MONOCYTES % 6.1 % (2.0-8.0); NEUTROPHILS % 84.2 % (40.0-76.0); PLATELET 414 x1000/uL (130-400); RED CELL DISTRIBUTION WIDTH 18.2 % (11.6-14.6)
[2020-05-25 08:00] VITALS: BP 109/54
[2020-05-25] MEDS: POLYETHYLENE GLYCOL 3350 (17GM) 1 DOSE PACK PO SCH (09:00)
[2020-05-25] MEDS ORDERED: MORPHINE SULFATE 2 MG/ML CPJ (NOT FOR IM USE) IV SCH (09:30)
[2020-05-25] MEDS: BLOOD SUGAR DIAGNOSTIC STRIP TEST SCH ×3 (09:30→22:00)
[2020-05-25 09:45] LABS: BG BASE EXCESS -0.4 mmol/L (-2.0-2.0); BG CARBOXYHEMOGLOBIN 0.3 % (0.5-1.5); BG DEOXYHEMOGLOBIN 6.9 % (0.0-5.0); BG FRACTION INSPIRED OXYGEN 28; BG HCO3 ACT 22.6 mmol/L (22.0-26.0); BG METHEMOGLOBIN 0.3 % (0.0-1.5); BG OXYGEN SATURATION 93.1 % (92.0-98.5); BG OXYHEMOGLOBIN 92.5 % (94.0-97.0); BG PO2 68.4 mmHg (75.0-100.0); BG SAMPLE SITE RIGHT RADIAL; BG TOTAL HEMOGLOBIN 10.2 g/dL (12.0-18.0); BG VENT MODE NASAL CANNULA
[2020-05-25] MEDS ORDERED: FUROSEMIDE 40MG/4ML VIAL IVP SCH (09:45)
[2020-05-25] MEDS: MIDODRINE HCL 5MG TABLET NG SCH ×3 (09:48→17:36)
[2020-05-25] MEDS: PANTOPRAZOLE SODIUM 40 MG/VIAL IV SCH ×2 (09:48→22:04)
[2020-05-25] MEDS: FUROSEMIDE 20MG/2ML VIAL IVP SCH (09:48)
[2020-05-25] MEDS ORDERED: FUROSEMIDE 20MG/2ML VIAL IVP SCH (10:15)
[2020-05-25] MEDS: SODIUM HYPOCHLORITE 0.125% 473ML SOLUTION TOP SCH (10:56)
[2020-05-25 11:52] LABS: INR 1.1; PROTHROMBIN TIME 11.1 sec (9.6-11.0)
[2020-05-25 12:00] VITALS: BP 109/54
[2020-05-25] MEDS ORDERED: SODIUM BICARBONATE 4% (2.4MEQ) 5ML VIAL IV ONE (14:11)
[2020-05-25 16:00] VITALS: BP 109/66
[2020-05-25] MEDS: INSULIN GLARGINE UD 100 UNITS/ML SYR SUBCUT SCH (16:06)
[2020-05-25 20:00] VITALS: BP 110/61
[2020-05-25] MEDS ORDERED: LIDOCAINE HCL/EPINEPHRINE 1%-EPI 1:100,000 10 ML VIAL IJ NR (23:00)
[2020-05-25] MEDS ORDERED: LIDOCAINE HCL/EPINEPHRINE 1%-EPI 1:100,000 20 ML VIAL INFIL NR (23:00)
[2020-05-26] VITALS: BP 101/60
[2020-05-26] MEDS: BLOOD SUGAR DIAGNOSTIC STRIP TEST SCH ×4 (03:30→21:35)
[2020-05-26] MEDS: INSULIN LISPRO (HIGH DOSE) 100 UNITS/ML SUBCUT SCH ×4 (03:30→21:30)
[2020-05-26 04:00] VITALS: BP 109/61
[2020-05-26 06:46] LABS: BASOPHILS % 0.4 % (0.0-2.0); EOSINOPHILS % 0.7 % (0.0-5.0); HEMATOCRIT. 27.2 % (36.0-48.0); LYMPHOCYTES % 14.6 % (20.0-50.0); MEAN CORPUSCULAR HEMOGLOBIN 29.7 pg (28.0-32.0); MEAN CORPUSCULAR VOLUME 90.1 fL (81.0-99.0); MEAN PLATELET VOLUME 9.1 fl (7.4-10.4); MONOCYTES % 5.9 % (2.0-8.0); NEUTROPHILS % 78.4 % (40.0-76.0); PLATELET 353 x1000/uL (130-400); RED BLOOD CELL COUNT 3.02 mill/uL (4.2-5.4); RED CELL DISTRIBUTION WIDTH 18.5 % (11.6-14.6)
[2020-05-26 06:48] LABS: CHLORIDE 103 mEq/L (98-107)
[2020-05-26 06:59] LABS: PHOSPHORUS 3.2 mg/dL (2.5-4.9)
[2020-05-26 08:15] VITALS: BP 128/61
[2020-05-26] MEDS: PANTOPRAZOLE SODIUM 40 MG/VIAL IV SCH ×2 (08:21→21:33)
[2020-05-26] MEDS: ZINC SULFATE 220 MG ( 50 ) CAPSULE GT SCH (08:22)
[2020-05-26] MEDS: FUROSEMIDE 20MG/2ML VIAL IVP SCH (08:22)
[2020-05-26] MEDS: POLYETHYLENE GLYCOL 3350 (17GM) 1 DOSE PACK PO SCH (08:22)
[2020-05-26] MEDS: SODIUM HYPOCHLORITE 0.125% 473ML SOLUTION TOP SCH (08:25)
[2020-05-26] MEDS: INSULIN GLARGINE UD 100 UNITS/ML SYR SUBCUT SCH (09:20)
[2020-05-26] MEDS: MIDODRINE HCL 5MG TABLET NG SCH ×3 (09:20→21:35)
[2020-05-26] MEDS: ASCORBIC ACID 500 MG TABLET GT SCH (09:20)
[2020-05-26 12:31] VITALS: BP 129/68
[2020-05-26 16:09] VITALS: BP 127/60
[2020-05-26 20:00] VITALS: BP 133/67
[2020-05-26] MEDS: MICAFUNGIN 100 MG in SODIUM CHLORIDE 0.9% 100 ML IV SCH (21:33)
[2020-05-27] VITALS: BP 166/73
[2020-05-27] MEDS: BLOOD SUGAR DIAGNOSTIC STRIP TEST SCH ×4 (03:30→21:50)
[2020-05-27 04:00] VITALS: BP 140/77
[2020-05-27] MEDS: MIDODRINE HCL 5MG TABLET NG SCH ×3 (06:00→21:55)
[2020-05-27] MEDS: ACETAMINOPHEN 650MG SUPP PR PRN ×2 (06:10→11:29)
[2020-05-27] MEDS: INSULIN LISPRO (HIGH DOSE) 100 UNITS/ML SUBCUT SCH ×4 (06:23→21:56)
[2020-05-27 06:57] LABS: BASOPHILS % 0.4 % (0.0-2.0); EOSINOPHILS % 0.4 % (0.0-5.0); HEMATOCRIT. 31.9 % (36.0-48.0); HEMOGLOBIN. 10.1 g/dL (12.0-16.0); LYMPHOCYTES % 15.1 % (20.0-50.0); MEAN CORPUSCULAR HEMOGLOBIN 28.8 pg (28.0-32.0); MEAN CORPUSCULAR VOLUME 90.9 fL (81.0-99.0); MEAN PLATELET VOLUME 9.8 fl (7.4-10.4); MONOCYTES % 3.1 % (2.0-8.0); PLATELET 364 x1000/uL (130-400); RED BLOOD CELL COUNT 3.51 mill/uL (4.2-5.4)
[2020-05-27 07:24] LABS: CHLORIDE 104 mEq/L (98-107)
[2020-05-27 07:32] LABS: PHOSPHORUS 3.1 mg/dL (2.5-4.9)
[2020-05-27 08:00] VITALS: BP 142/54
[2020-05-27] MEDS: FUROSEMIDE 20MG/2ML VIAL IVP SCH (10:23)
[2020-05-27] MEDS: PANTOPRAZOLE SODIUM 40 MG/VIAL IV SCH ×2 (10:24→21:47)
[2020-05-27] MEDS: ZINC SULFATE 220 MG ( 50 ) CAPSULE GT SCH (10:34)
[2020-05-27] MEDS: POLYETHYLENE GLYCOL 3350 (17GM) 1 DOSE PACK PO SCH (10:34)
[2020-05-27] MEDS: ASCORBIC ACID 500 MG TABLET GT SCH (10:34)
[2020-05-27] MEDS: INSULIN GLARGINE UD 100 UNITS/ML SYR SUBCUT SCH (10:45)
[2020-05-27] MEDS: IPRATROPIUM/ALBUTEROL 0.5-3(2.5)MG/3ML NEB HHN SCH (11:34)
[2020-05-27 12:00] VITALS: BP 131/65
[2020-05-27] MEDS: SODIUM HYPOCHLORITE 0.125% 473ML SOLUTION TOP SCH (14:22)
[2020-05-27 16:00] VITALS: BP 139/65
[2020-05-27 20:00] VITALS: BP 157/58
[2020-05-27] MEDS: MICAFUNGIN 100 MG in SODIUM CHLORIDE 0.9% 100 ML IV SCH (21:47)
[2020-05-28] VITALS: BP 135/49
[2020-05-28] MEDS: IPRATROPIUM/ALBUTEROL 0.5-3(2.5)MG/3ML NEB HHN SCH ×4 (00:21→21:33)
[2020-05-28] MEDS: BLOOD SUGAR DIAGNOSTIC STRIP TEST SCH ×4 (03:30→19:50)
[2020-05-28 04:00] VITALS: BP 118/56
[2020-05-28 06:11] LABS: CHLORIDE 106 mEq/L (98-107)
[2020-05-28 06:23] LABS: PHOSPHORUS 3.3 mg/dL (2.5-4.9)
[2020-05-28 06:24] LABS: HEMATOCRIT. 27.1 % (36.0-48.0); HEMOGLOBIN. 8.8 g/dL (12.0-16.0); MEAN CORPUSCULAR HEMOGLOBIN 29.1 pg (28.0-32.0); MEAN CORPUSCULAR VOLUME 90.1 fL (81.0-99.0); MEAN PLATELET VOLUME 9.6 fl (7.4-10.4); PLATELET 275 x1000/uL (130-400); RED BLOOD CELL COUNT 3.01 mill/uL (4.2-5.4); RED CELL DISTRIBUTION WIDTH 19.2 % (11.6-14.6)
[2020-05-28] MEDS: MIDODRINE HCL 5MG TABLET NG SCH ×3 (06:43→21:29)
[2020-05-28] MEDS: INSULIN LISPRO (HIGH DOSE) 100 UNITS/ML SUBCUT SCH ×4 (06:43→19:50)
[2020-05-28 08:00] VITALS: BP 122/70
[2020-05-28] MEDS: ZINC SULFATE 220 MG ( 50 ) CAPSULE GT SCH (09:29)
[2020-05-28] MEDS: ASCORBIC ACID 500 MG TABLET GT SCH (09:29)
[2020-05-28] MEDS: HYDROCODONE/ACETAMINOPHEN 5/325MG TABLET PO PRN ×3 (09:29→22:05)
[2020-05-28] MEDS: FUROSEMIDE 20MG/2ML VIAL IVP SCH (09:29)
[2020-05-28] MEDS: PANTOPRAZOLE SODIUM 40 MG/VIAL IV SCH ×2 (09:37→21:28)
[2020-05-28] MEDS: SODIUM HYPOCHLORITE 0.125% 473ML SOLUTION TOP SCH (09:38)
[2020-05-28] MEDS: POLYETHYLENE GLYCOL 3350 (17GM) 1 DOSE PACK PO SCH (09:52)
[2020-05-28] MEDS: INSULIN GLARGINE UD 100 UNITS/ML SYR SUBCUT SCH (10:33)
[2020-05-28 12:00] VITALS: BP 129/73
[2020-05-28 13:19] LABS: NUCLEATED RED BLOOD CELLS 1 /100 WBC; PLATELET ESTIMATE NORMAL
[2020-05-28 16:00] VITALS: BP 147/61
[2020-05-28] MEDS: MICAFUNGIN 100 MG in SODIUM CHLORIDE 0.9% 100 ML IV SCH (21:28)
[2020-05-28 21:51] VITALS: BP 124/43
[2020-05-29] VITALS: BP 119/58
[2020-05-29] MEDS: BLOOD SUGAR DIAGNOSTIC STRIP TEST SCH ×3 (03:08→19:10)
[2020-05-29] MEDS: INSULIN LISPRO (HIGH DOSE) 100 UNITS/ML SUBCUT SCH ×3 (03:15→19:10)
[2020-05-29 04:00] VITALS: BP 134/59
[2020-05-29] MEDS: MIDODRINE HCL 5MG TABLET NG SCH ×3 (05:41→21:10)
[2020-05-29 06:50] LABS: HEMATOCRIT. 28.6 % (36.0-48.0); HEMOGLOBIN. 9.2 g/dL (12.0-16.0); MEAN CORPUSCULAR HEMOGLOBIN 29.4 pg (28.0-32.0); MEAN PLATELET VOLUME 10.1 fl (7.4-10.4); PLATELET 291 x1000/uL (130-400); RED BLOOD CELL COUNT 3.15 mill/uL (4.2-5.4); RED CELL DISTRIBUTION WIDTH 19.3 % (11.6-14.6)
[2020-05-29 07:03] LABS: CHLORIDE 105 mEq/L (98-107)
[2020-05-29 07:28] LABS: PHOSPHORUS 2.3 mg/dL (2.5-4.9)
[2020-05-29] MEDS: ASCORBIC ACID 500 MG TABLET GT SCH (08:24)
[2020-05-29] MEDS: ZINC SULFATE 220 MG ( 50 ) CAPSULE GT SCH (08:24)
[2020-05-29] MEDS: PANTOPRAZOLE SODIUM 40 MG/VIAL IV SCH ×2 (08:24→19:43)
[2020-05-29] MEDS: POLYETHYLENE GLYCOL 3350 (17GM) 1 DOSE PACK PO SCH (08:25)
[2020-05-29] MEDS: FUROSEMIDE 20MG/2ML VIAL IVP SCH (08:25)
[2020-05-29] MEDS: SODIUM HYPOCHLORITE 0.125% 473ML SOLUTION TOP SCH (08:25)
[2020-05-29] MEDS: IPRATROPIUM/ALBUTEROL 0.5-3(2.5)MG/3ML NEB HHN SCH ×3 (09:02→22:00)
[2020-05-29 09:15] VITALS: BP 173/72
[2020-05-29] MEDS ORDERED: POTASSIUM PHOS,M-BASIC-D-BASIC 15 MMOL in DEXT 5% WATER 245 ML IV SCH (11:00)
[2020-05-29 11:14] LABS: NUCLEATED RED BLOOD CELLS 2 /100 WBC
[2020-05-29 11:15] LABS: PLATELET ESTIMATE NORMAL
[2020-05-29] MEDS: INSULIN GLARGINE UD 100 UNITS/ML SYR SUBCUT SCH (11:49)
[2020-05-29 12:00] VITALS: BP 169/91
[2020-05-29] MEDS: HYDROCODONE/ACETAMINOPHEN 5/325MG TABLET PO PRN ×2 (12:37→17:26)
[2020-05-29 16:00] VITALS: BP 130/68
[2020-05-29] MEDS: MICAFUNGIN 100 MG in SODIUM CHLORIDE 0.9% 100 ML IV SCH (19:43)
[2020-05-29] MEDS: ACETAMINOPHEN 650MG SUPP PR PRN (19:53)
[2020-05-29 20:00] VITALS: BP 133/73
[2020-05-30] VITALS: BP 152/73
[2020-05-30] MEDS ORDERED: BLOOD SUGAR DIAGNOSTIC STRIP TEST SCH
[2020-05-30] MEDS: BLOOD SUGAR DIAGNOSTIC STRIP TEST SCH ×4 (00:19→18:13)
[2020-05-30] MEDS: INSULIN LISPRO (HIGH DOSE) 100 UNITS/ML SUBCUT SCH ×4 (00:27→18:12)
[2020-05-30 04:00] VITALS: BP 153/75
[2020-05-30] MEDS: HYDROCODONE/ACETAMINOPHEN 5/325MG TABLET PO PRN ×3 (04:13→18:14)
[2020-05-30 06:02] LABS: HEMATOCRIT. 29.3 % (36.0-48.0); HEMOGLOBIN. 9.6 g/dL (12.0-16.0); MEAN CORPUSCULAR HEMOGLOBIN 29.8 pg (28.0-32.0); MEAN CORPUSCULAR VOLUME 90.9 fL (81.0-99.0); MEAN PLATELET VOLUME 10.4 fl (7.4-10.4); PLATELET 323 x1000/uL (130-400); RED BLOOD CELL COUNT 3.22 mill/uL (4.2-5.4); RED CELL DISTRIBUTION WIDTH 19.2 % (11.6-14.6)
[2020-05-30] MEDS: MIDODRINE HCL 5MG TABLET NG SCH (06:16)
[2020-05-30 06:32] LABS: CHLORIDE 103 mEq/L (98-107)
[2020-05-30 06:42] LABS: PHOSPHORUS 3.4 mg/dL (2.5-4.9)
[2020-05-30] MEDS: ZINC SULFATE 220 MG ( 50 ) CAPSULE GT SCH (07:39)
[2020-05-30] MEDS: ASCORBIC ACID 500 MG TABLET GT SCH (07:39)
[2020-05-30] MEDS: PANTOPRAZOLE SODIUM 40 MG/VIAL IV SCH ×2 (07:39→20:37)
[2020-05-30] MEDS: FUROSEMIDE 20MG/2ML VIAL IVP SCH (07:39)
[2020-05-30] MEDS: POLYETHYLENE GLYCOL 3350 (17GM) 1 DOSE PACK PO SCH (07:39)
[2020-05-30] MEDS: SODIUM HYPOCHLORITE 0.125% 473ML SOLUTION TOP SCH (07:40)
[2020-05-30 08:03] VITALS: BP 150/77
[2020-05-30] MEDS: IPRATROPIUM/ALBUTEROL 0.5-3(2.5)MG/3ML NEB HHN SCH ×2 (09:34→13:39)
[2020-05-30] MEDS: INSULIN GLARGINE UD 100 UNITS/ML SYR SUBCUT SCH (11:49)
[2020-05-30 11:51] VITALS: BP 126/78
[2020-05-30 16:33] VITALS: BP 130/68
[2020-05-30 20:00] VITALS: BP 129/57
[2020-05-30] MEDS: MICAFUNGIN 100 MG in SODIUM CHLORIDE 0.9% 100 ML IV SCH (20:37)
[2020-05-30 22:52] LABS: PLATELET ESTIMATE NORMAL
[2020-05-31] VITALS: BP 144/80
[2020-05-31] MEDS: IPRATROPIUM/ALBUTEROL 0.5-3(2.5)MG/3ML NEB HHN SCH ×3 (01:03→15:02)
[2020-05-31] MEDS: INSULIN LISPRO (HIGH DOSE) 100 UNITS/ML SUBCUT SCH ×4 (01:28→18:08)
[2020-05-31 04:00] VITALS: BP 143/74
[2020-05-31] MEDS: BLOOD SUGAR DIAGNOSTIC STRIP TEST SCH ×4 (06:00→18:06)
[2020-05-31 06:10] LABS: HEMATOCRIT. 27.8 % (36.0-48.0); HEMOGLOBIN. 9.3 g/dL (12.0-16.0); MEAN CORPUSCULAR HEMOGLOBIN 30.1 pg (28.0-32.0); MEAN CORPUSCULAR VOLUME 89.8 fL (81.0-99.0); MEAN PLATELET VOLUME 10.6 fl (7.4-10.4); PLATELET 354 x1000/uL (130-400); RED CELL DISTRIBUTION WIDTH 19.8 % (11.6-14.6)
[2020-05-31 06:13] LABS: CHLORIDE 104 mEq/L (98-107)
[2020-05-31 06:30] LABS: PHOSPHORUS 3.2 mg/dL (2.5-4.9)
[2020-05-31] MEDS: ZINC SULFATE 220 MG ( 50 ) CAPSULE GT SCH (07:31)
[2020-05-31] MEDS: ASCORBIC ACID 500 MG TABLET GT SCH (07:31)
[2020-05-31] MEDS: FUROSEMIDE 20MG/2ML VIAL IVP SCH (07:31)
[2020-05-31] MEDS: POLYETHYLENE GLYCOL 3350 (17GM) 1 DOSE PACK PO SCH (07:31)
[2020-05-31] MEDS: HYDROCODONE/ACETAMINOPHEN 5/325MG TABLET PO PRN ×2 (07:31→17:14)
[2020-05-31] MEDS: SODIUM HYPOCHLORITE 0.125% 473ML SOLUTION TOP SCH (07:31)
[2020-05-31] MEDS: PANTOPRAZOLE SODIUM 40 MG/VIAL IV SCH ×2 (07:31→20:46)
[2020-05-31 07:49] VITALS: BP 139/74
[2020-05-31 11:51] VITALS: BP 105/56
[2020-05-31] MEDS: INSULIN GLARGINE UD 100 UNITS/ML SYR SUBCUT SCH (12:16)
[2020-05-31 14:42] LABS: PLATELET ESTIMATE NORMAL
[2020-05-31 16:29] VITALS: BP 124/71
[2020-05-31 20:00] VITALS: BP 128/71
[2020-05-31] MEDS: MICAFUNGIN 100 MG in SODIUM CHLORIDE 0.9% 100 ML IV SCH (20:46)
[2020-05-31] MEDS: ACETAMINOPHEN 650MG SUPP PR PRN (20:47)
[2020-06-01] VITALS: BP 138/76
[2020-06-01] MEDS: INSULIN LISPRO (HIGH DOSE) 100 UNITS/ML SUBCUT SCH ×4 (02:59→17:33)
[2020-06-01 04:00] VITALS: BP 132/69
[2020-06-01] MEDS: BLOOD SUGAR DIAGNOSTIC STRIP TEST SCH ×4 (06:48→17:34)
[2020-06-01 07:10] LABS: HEMATOCRIT. 29.1 % (36.0-48.0); HEMOGLOBIN. 9.2 g/dL (12.0-16.0); MEAN CORPUSCULAR VOLUME 91.6 fL (81.0-99.0); MEAN PLATELET VOLUME 10.7 fl (7.4-10.4); PLATELET 359 x1000/uL (130-400); RED BLOOD CELL COUNT 3.18 mill/uL (4.2-5.4)
[2020-06-01 07:20] LABS: CHLORIDE 104 mEq/L (98-107)
[2020-06-01 07:32] LABS: PHOSPHORUS 3.4 mg/dL (2.5-4.9)
[2020-06-01 08:00] VITALS: BP 130/74
[2020-06-01] MEDS: POLYETHYLENE GLYCOL 3350 (17GM) 1 DOSE PACK PO SCH (08:04)
[2020-06-01] MEDS: ASCORBIC ACID 500 MG TABLET GT SCH (08:05)
[2020-06-01] MEDS: SODIUM HYPOCHLORITE 0.125% 473ML SOLUTION TOP SCH (08:05)
[2020-06-01] MEDS: PANTOPRAZOLE SODIUM 40 MG/VIAL IV SCH ×2 (08:05→21:48)
[2020-06-01] MEDS: ZINC SULFATE 220 MG ( 50 ) CAPSULE GT SCH (08:05)
[2020-06-01] MEDS: FUROSEMIDE 20MG/2ML VIAL IVP SCH (08:05)
[2020-06-01] MEDS: IPRATROPIUM/ALBUTEROL 0.5-3(2.5)MG/3ML NEB HHN SCH ×3 (08:24→21:46)
[2020-06-01] MEDS: INSULIN GLARGINE UD 100 UNITS/ML SYR SUBCUT SCH (10:05)
[2020-06-01] MEDS ORDERED: PANT40TA51 MT (11:21)
[2020-06-01] MEDS ORDERED: FURO40TA5 PO (11:21)
[2020-06-01 11:50] LABS: NUCLEATED RED BLOOD CELLS 4 /100 WBC
[2020-06-01 11:51] LABS: PLATELET ESTIMATE NORMAL
[2020-06-01 12:00] VITALS: BP 127/64
[2020-06-01 16:00] VITALS: BP 125/65
[2020-06-01 20:00] VITALS: BP 158/75
[2020-06-01] MEDS: MICAFUNGIN 100 MG in SODIUM CHLORIDE 0.9% 100 ML IV SCH (21:48)
[2020-06-01] MEDS: HYDROCODONE/ACETAMINOPHEN 5/325MG TABLET PO PRN (21:49)
[2020-06-02] VITALS: BP 121/57
[2020-06-02] MEDS: BLOOD SUGAR DIAGNOSTIC STRIP TEST SCH ×5 (00:52→23:42)
[2020-06-02] MEDS: INSULIN LISPRO (HIGH DOSE) 100 UNITS/ML SUBCUT SCH ×5 (00:56→23:44)
[2020-06-02 04:00] VITALS: BP 176/94
[2020-06-02 06:59] LABS: HEMOGLOBIN. 9.5 g/dL (12.0-16.0); MEAN CORPUSCULAR HEMOGLOBIN 29.1 pg (28.0-32.0); MEAN CORPUSCULAR VOLUME 92.1 fL (81.0-99.0); MEAN PLATELET VOLUME 10.4 fl (7.4-10.4); PLATELET 355 x1000/uL (130-400); RED BLOOD CELL COUNT 3.26 mill/uL (4.2-5.4); RED CELL DISTRIBUTION WIDTH 20.5 % (11.6-14.6)
[2020-06-02 07:11] LABS: CHLORIDE 104 mEq/L (98-107)
[2020-06-02 07:22] LABS: PHOSPHORUS 4.3 mg/dL (2.5-4.9)
[2020-06-02 08:30] VITALS: BP 106/56
[2020-06-02] MEDS: ZINC SULFATE 220 MG ( 50 ) CAPSULE GT SCH (08:43)
[2020-06-02] MEDS: SODIUM HYPOCHLORITE 0.125% 473ML SOLUTION TOP SCH (08:43)
[2020-06-02] MEDS: ASCORBIC ACID 500 MG TABLET GT SCH (08:43)
[2020-06-02] MEDS: PANTOPRAZOLE SODIUM 40 MG/VIAL IV SCH ×2 (08:43→21:36)
[2020-06-02] MEDS: POLYETHYLENE GLYCOL 3350 (17GM) 1 DOSE PACK PO SCH (08:43)
[2020-06-02] MEDS ORDERED: FUROSEMIDE 40MG TABLET PO SCH (09:00)
[2020-06-02] MEDS: IPRATROPIUM/ALBUTEROL 0.5-3(2.5)MG/3ML NEB HHN SCH ×2 (09:05→16:34)
[2020-06-02] MEDS: FUROSEMIDE 40MG/4ML VIAL IVP SCH (10:02)
[2020-06-02] MEDS: INSULIN GLARGINE UD 100 UNITS/ML SYR SUBCUT SCH (10:06)
[2020-06-02 12:00] VITALS: BP 107/58
[2020-06-02] MEDS: CEFEPIME 2,000 MG in DEXT 5% WATER 100 ML IV SCH ×2 (13:35→22:56)
[2020-06-02 13:59] LABS: NUCLEATED RED BLOOD CELLS 11 /100 WBC
[2020-06-02 14:00] LABS: PLATELET ESTIMATE NORMAL
[2020-06-02 16:00] VITALS: BP 141/72
[2020-06-02 20:00] VITALS: BP 164/73
[2020-06-02] MEDS ORDERED: ACETAMINOPHEN 325MG TABLET PO PRN ×2 (23:15)
[2020-06-02] MEDS: HYDROCODONE/ACETAMINOPHEN 5/325MG TABLET PO PRN (23:29)
[2020-06-03] VITALS: BP 139/70
[2020-06-03] MEDS: IPRATROPIUM/ALBUTEROL 0.5-3(2.5)MG/3ML NEB HHN SCH ×4 (01:13→19:50)
[2020-06-03 04:00] VITALS: BP 100/49
[2020-06-03] MEDS: BLOOD SUGAR DIAGNOSTIC STRIP TEST SCH ×3 (06:04→17:21)
[2020-06-03] MEDS: INSULIN LISPRO (HIGH DOSE) 100 UNITS/ML SUBCUT SCH ×3 (06:15→18:59)
[2020-06-03 06:49] LABS: CHLORIDE 105 mEq/L (98-107)
[2020-06-03 06:58] LABS: PHOSPHORUS 3.4 mg/dL (2.5-4.9)
[2020-06-03 07:05] LABS: HEMOGLOBIN. 9.2 g/dL (12.0-16.0); MEAN CORPUSCULAR HEMOGLOBIN 28.8 pg (28.0-32.0); MEAN CORPUSCULAR VOLUME 90.9 fL (81.0-99.0); MEAN PLATELET VOLUME 10.3 fl (7.4-10.4); PLATELET 322 x1000/uL (130-400); RED BLOOD CELL COUNT 3.19 mill/uL (4.2-5.4); RED CELL DISTRIBUTION WIDTH 20.1 % (11.6-14.6)
[2020-06-03 08:00] VITALS: BP 111/73
[2020-06-03] MEDS: HYDROCODONE/ACETAMINOPHEN 5/325MG TABLET PO PRN ×2 (09:10→13:15)
[2020-06-03] MEDS: ZINC SULFATE 220 MG ( 50 ) CAPSULE GT SCH (09:10)
[2020-06-03] MEDS: ASCORBIC ACID 500 MG TABLET GT SCH (09:10)
[2020-06-03] MEDS: CEFEPIME 2,000 MG in DEXT 5% WATER 100 ML IV SCH (09:10)
[2020-06-03] MEDS: POLYETHYLENE GLYCOL 3350 (17GM) 1 DOSE PACK PO SCH (09:11)
[2020-06-03] MEDS: PANTOPRAZOLE SODIUM 40 MG/VIAL IV SCH ×2 (09:11→21:46)
[2020-06-03] MEDS: FUROSEMIDE 40MG/4ML VIAL IVP SCH (09:11)
[2020-06-03] MEDS: INSULIN GLARGINE UD 100 UNITS/ML SYR SUBCUT SCH (09:32)
[2020-06-03 12:00] VITALS: BP 149/85
[2020-06-03] MEDS ORDERED: POTASSIUM CHLORIDE 20MEQ/PACKET PO SCH (12:00)
[2020-06-03 16:00] VITALS: BP 144/78
[2020-06-03] MEDS: MEROPENEM 500 MG in SODIUM CHLORIDE 0.9% 50 ML IV SCH ×2 (17:21→23:20)
[2020-06-03 20:00] VITALS: BP 135/69
[2020-06-03] MEDS ORDERED: MICAFUNGIN 100 MG in SODIUM CHLORIDE 0.9% 100 ML IV SCH (21:00)
[2020-06-03] MEDS ORDERED: INSULIN GLARGINE UD 100 UNITS/ML SYR SUBCUT SCH (22:00)
[2020-06-03 22:37] LABS: NUCLEATED RED BLOOD CELLS 4 /100 WBC; PLATELET ESTIMATE NORMAL
[2020-06-04] VITALS: BP 110/69
[2020-06-04] MEDS: BLOOD SUGAR DIAGNOSTIC STRIP TEST SCH ×3 (00:07→11:40)
[2020-06-04] MEDS: INSULIN LISPRO (HIGH DOSE) 100 UNITS/ML SUBCUT SCH ×3 (00:12→11:48)
[2020-06-04] MEDS: HYDROCODONE/ACETAMINOPHEN 5/325MG TABLET PO PRN (01:14)
[2020-06-04 04:00] VITALS: BP 113/56
[2020-06-04 07:01] LABS: HEMOGLOBIN. 9.5 g/dL (12.0-16.0); MEAN CORPUSCULAR VOLUME 91.5 fL (81.0-99.0); MEAN PLATELET VOLUME 10.5 fl (7.4-10.4); PLATELET 326 x1000/uL (130-400); RED BLOOD CELL COUNT 3.28 mill/uL (4.2-5.4); RED CELL DISTRIBUTION WIDTH 20.6 % (11.6-14.6)
[2020-06-04 07:05] LABS: CHLORIDE 107 mEq/L (98-107)
[2020-06-04 08:00] VITALS: BP 142/71
[2020-06-04] MEDS: POLYETHYLENE GLYCOL 3350 (17GM) 1 DOSE PACK PO SCH (08:36)
[2020-06-04] MEDS: MEROPENEM 500 MG in SODIUM CHLORIDE 0.9% 50 ML IV SCH ×2 (08:36→14:54)
[2020-06-04] MEDS: ASCORBIC ACID 500 MG TABLET GT SCH (08:36)
[2020-06-04] MEDS: PANTOPRAZOLE SODIUM 40 MG/VIAL IV SCH (08:36)
[2020-06-04] MEDS: ZINC SULFATE 220 MG ( 50 ) CAPSULE GT SCH (08:37)
[2020-06-04] MEDS: IPRATROPIUM/ALBUTEROL 0.5-3(2.5)MG/3ML NEB HHN SCH (10:03)
[2020-06-04] MEDS: INSULIN GLARGINE UD 100 UNITS/ML SYR SUBCUT SCH (10:23)
[2020-06-04 12:00] VITALS: BP 124/64
[2020-06-04] MEDS ORDERED: POTASSIUM CHLORIDE 20MEQ/PACKET GT NR (12:00)
[2020-06-04 13:02] LABS: NUCLEATED RED BLOOD CELLS 9 /100 WBC
[2020-06-04 13:03] LABS: PLATELET ESTIMATE NORMAL
[2020-06-04 16:00] VITALS: BP 88/38
[2020-06-05] MEDS ORDERED: PANTOPRAZOLE SODIUM 40 MG/VIAL IV SCH (09:00)
== END 2020-06-04 16:10 | disposition expired | DRG 853 ==
LOC: ER 15:39 → MICUSO 18:13 → EDBEDREQ 18:17 → EDBEDREQTM 18:17 → EDBEDREQSVC 18:17 → 5EST 05-12 11:03 → 6EST 05-15 02:17 → 6WST 05-25 17:30 → 6EST 06-02 22:35
PROVIDERS: ADMIT Internal Medicine; ATTEND Internal Medicine
PROC: 30233N1 Transfusion of Nonautologous Red Blood Cells into Peripheral Vein, Percutaneous Approach (ICD-10-PCS; principal; 2020-05-12)
PROC: 0DH63UZ Insertion of Feeding Device into Stomach, Percutaneous Approach (ICD-10-PCS; 2020-05-13)
PROC: 0DB68ZX Excision of Stomach, Via Natural or Artificial Opening Endoscopic, Diagnostic (ICD-10-PCS; 2020-05-13)
PROC: 0JB90ZZ Excision of Buttock Subcutaneous Tissue and Fascia, Open Approach (ICD-10-PCS; 2020-05-20)
PROC: 02HV33Z Insertion of Infusion Device into Superior Vena Cava, Percutaneous Approach (ICD-10-PCS; 2020-05-24)
PROC: B548ZZA Ultrasonography of Superior Vena Cava, Guidance (ICD-10-PCS; 2020-05-24)
PROC: 0W993ZZ Drainage of Right Pleural Cavity, Percutaneous Approach (ICD-10-PCS; 2020-05-25)
PROC: 0KBP0ZZ Excision of Left Hip Muscle, Open Approach (ICD-10-PCS; 2020-05-26)
PROC: 0KBN0ZZ Excision of Right Hip Muscle, Open Approach (ICD-10-PCS; 2020-05-26)
DX: A41.9 Sepsis, unspecified organism (principal); R65.21 Severe sepsis with septic shock; L89.154 Pressure ulcer of sacral region, stage 4; L89.323 Pressure ulcer of left buttock, stage 3; G92 Toxic encephalopathy; I21.A1 Myocardial infarction type 2; J69.0 Pneumonitis due to inhalation of food and vomit; J96.01 Acute respiratory failure with hypoxia; E43 Unspecified severe protein-calorie malnutrition; I50.33 Acute on chronic diastolic (congestive) heart failure; K26.4 Chronic or unspecified duodenal ulcer with hemorrhage; N18.6 End stage renal disease; E87.0 Hyperosmolality and hypernatremia; E87.2 Acidosis; N17.9 Acute kidney failure, unspecified; N39.0 Urinary tract infection, site not specified; M62.82 Rhabdomyolysis; B49 Unspecified mycosis; I13.2 Hypertensive heart and chronic kidney disease with heart failure and with stage 5 chronic kidney disease, or end stage renal disease; I42.2 Other hypertrophic cardiomyopathy; E11.22 Type 2 diabetes mellitus with diabetic chronic kidney disease; D64.9 Anemia, unspecified; D32.0 Benign neoplasm of cerebral meninges; D32.9 Benign neoplasm of meninges, unspecified; D72.810 Lymphocytopenia; D69.6 Thrombocytopenia, unspecified; E04.2 Nontoxic multinodular goiter; E11.65 Type 2 diabetes mellitus with hyperglycemia; E86.0 Dehydration; E86.1 Hypovolemia; E87.6 Hypokalemia; K56.41 Fecal impaction; K80.20 Calculus of gallbladder without cholecystitis without obstruction; K82.8 Other specified diseases of gallbladder; Z66 Do not resuscitate; L89.90 Pressure ulcer of unspecified site, unspecified stage; N28.1 Cyst of kidney, acquired; N81.4 Uterovaginal prolapse, unspecified; R13.10 Dysphagia, unspecified; E11.51 Type 2 diabetes mellitus with diabetic peripheral angiopathy without gangrene; R62.7 Adult failure to thrive; Z20.822 Contact with and (suspected) exposure to COVID-19; L89.616 Pressure-induced deep tissue damage of right heel; L89.626 Pressure-induced deep tissue damage of left heel; Z79.84 Long term (current) use of oral hypoglycemic drugs; Z82.49 Family history of ischemic heart disease and other diseases of the circulatory system; Z83.3 Family history of diabetes mellitus; Z68.24 Body mass index [BMI] 24.0-24.9, adult; Z86.011 Personal history of benign neoplasm of the brain; E83.42 Hypomagnesemia; Z51.5 Encounter for palliative care; R74.01 Elevation of levels of liver transaminase levels; R80.9 Proteinuria, unspecified
CPT/HCPCS: 32555; 36415; 36600; 70551; 71045; 71250; 74018; 74176; 76536; 76604; 76700; 76937; 80048; 80053; 80061; 80076; 80202; 81003; 82010; 82040; 82140; 82270; 82375; 82550; 82553; 82607; 82728; 82746; 82805; 82962; 83036; 83540; 83550; 83605; 83615; 83735; 83880; 83930; 84100; 84132; 84134; 84145; 84295; 84439; 84443; 84480; 84481; 84484; 85014; 85018; 85025; 85027; 85044; 85362; 85379; 85384; 86140; 86677; 86850; 86870; 86900; 86920; 87106; 87426; 88108; 88305; 88312; 88313; 90732; 92610; 93005; 93306; 93923; 94640; 96365; 99291; C1725; C1893; C9113; J0692; J1815; J1940; J2185; J2248; J2250; J2270; J2370; J2543; J3010; J3370; J3475; J3480; J3490; J7030; J7040; J7050; J7060; J7070; P9016; P9047; U0003; A4315